=== PATIENT | male | born 1985 | race Caucasian/White ===

== ENCOUNTER 2017-11-12 10:15 | Emergency (ER) | payer OTHER ==
--- NOTE | 2017-11-12 11:19 | ED PDOC ---
HPI: Psych/Substance Abuse Time Seen by Provider: 11/12/17 11:17 Chief Complaint (Nursing): Psychiatric Evaluation Chief Complaint (Provider): PSYCH EVAL History Per: Patient (31 Y/O MALE H/O PTSD BROUGHT TO ED BY POLICE FOR EVALUATION OF AGITATION NOTED AT HOME. PATIENT STATES HE 'VENTS' AFTER WORK DUE TO HIS PTSD/ ALSO TALKS TO FRIENDS AND SMOKES [place] TO HELP WITH SYMPTOMS. DENIES ANY SI/HI. NO MEDICATIONS OTHERWISE.) Past Medical History Reviewed: Historical Data, Nursing Documentation, Vital Signs Vital Signs: Last Vital Signs Temp 97.9 F 11/12/17 10:18 Pulse 109 H 11/12/17 10:18 Resp 21 11/12/17 10:18 BP 129/78 11/12/17 10:18 Pulse Ox 100 11/12/17 10:18 - Medical History PMH: Bipolar Disorder, Schizophrenia Denies: Chronic Kidney Disease - Family History Family History: States: No Known Family Hx - Home Medications Home Medications: Ambulatory Orders Medication Instructions Recorded No Known Home Med 11/12/17 - Allergies Allergies/Adverse Reactions: Allergies Allergy/AdvReac Type Severity Reaction Status Date / Time No Known Allergies Allergy Verified 11/12/17 11:12 - Laboratory Results Result Diagrams: 11/12/17 11:27 11/12/17 11:27 - ECG O2 Sat by Pulse Oximetry: 100 - Progress ED Course And Treament: XANAX 0.5 MG X 1 DOSE SEEN BY CRISIS WILL BE [facility] [place] [place] EVALUATION 1:1 ORDERED CXR:NAD EKG: NSR 70BPM WITH OCCASIONAL PVC PATIENT MEDICALLY CLEARED FOR PSYCHIATRIC EVALUATION Disposition - Clinical Impression Clinical Impression: PTSD (post-traumatic stress disorder) - Patient ED Disposition Is Patient to be Admitted: Transfer of Care - Disposition Disposition: Transfer of Care Disposition Time: 20:00 Condition: STABLE Patient Signed Over To: Coby Stoo Handoff Comments: PENDING [facility] EVAL
[2017-11-12 11:36] LABS: BASO % 0.5 % (0.0-2.0); EOS # 0.1 K/uL (0.0-0.7); EOS % 0.8 % (0.0-4.0); HEMOGLOBIN 13.6 g/dL (12.0-18.0); LYMPH # 2.1 K/uL (1.0-4.3); MEAN CELL VOLUME 89.1 fl (80.0-94.0); MEAN CORPUSCULAR HEMOGLOBIN 30.7 pg (27.0-31.0); MEAN CORPUSCULAR HGB CONC 34.5 g/dL (33.0-37.0); MEAN PLATELET VOLUME 8.1 fl (7.2-11.7); MONO # 0.6 K/uL (0.0-0.8); MONO % 8.1 % (0.0-10.0); NEUT # 4.1 K/uL (1.8-7.0); NEUT % 59.6 % (50.0-75.0); NRBC % 0.1 % (0.0-0.0); RBC 4.43 Mil/uL (4.40-5.90); RED CELL DISTRIBUTION WIDTH 12.8 % (11.5-14.5); WHITE BLOOD COUNT 6.9 K/uL (4.8-10.8)
[2017-11-12 11:38] LABS: URINE BACTERIA RARE (<OCC); URINE BILIRUBIN NEGATIVE (NEGATIVE); URINE BLOOD NEGATIVE (NEGATIVE); URINE CLARITY CLOUDY (Clear); URINE COLOR AMBER (YELLOW); URINE GLUCOSE (UA) NEG (Normal); URINE LEUKOCYTE ESTERASE NEG Leu/uL (Negative); URINE PROTEIN 30 mg/dL (NEGATIVE)
[2017-11-12 11:44] LABS: BLOOD UREA NITROGEN 14 mg/dl (9-20); GFR AFRICAN-AMERICAN > 60; GFR NON-AFRICAN AMERICAN > 60
[2017-11-12 11:58] LABS: BARBITURATES, UR NEGATIVE (NEGATIVE); BENZODIAZEPINES, UR NEGATIVE (NEGATIVE); OPIATES, UR NEGATIVE (NEGATIVE); PHENCYCLIDINE, UR NEGATIVE (NEGATIVE)
[2017-11-12 14:19] LABS: ACETAMINOPHEN < 10.0 ug/ml (10.0-30.0); SALICYLATE < 1.0 mg/dl
--- NOTE | 2017-11-12 14:41 | RAD ---
PROCEDURE: CHEST RADIOGRAPH, 1 VIEW HISTORY: ROUTINE COMPARISON: None available. FINDINGS: LUNGS: Clear. PLEURA: No pneumothorax or pleural fluid seen. CARDIOVASCULAR: Normal. OSSEOUS STRUCTURES: No significant abnormalities. VISUALIZED UPPER ABDOMEN: Normal. OTHER FINDINGS: None. IMPRESSION: No active disease.
--- NOTE | 2017-11-12 20:48 | ED PDOC ---
- Laboratory Results Result Diagrams: 11/12/17 11:27 11/12/17 11:27 - ECG O2 Sat by Pulse Oximetry: 100 Pulse Ox Interpretation: Normal <Coby Soto - Last Filed: 11/13/17 03:59> - Laboratory Results Result Diagrams: 11/12/17 11:27 11/12/17 11:27 <Haley Ward A - Last Filed: 11/15/17 11:45> Medical Decision Making <Coby Soto - Last Filed: 11/13/17 03:59> <Haley Ward A - Last Filed: 11/15/17 11:45> Medical Decision Making: Case was signed out to staff writer from [facility] pending [facility] evaluation. 8:45 pm: Patient starting to become increasingly agitated, 2 mg IM Ativan ordered 1:30 pm - [place] crisis counselor evaluated patient and patient is accepted at [facility]. Beds are currently not available. Patient will be monitored in the ED pending available bed at [place]. ( ElviscarissaCoby) Disposition - POA Present On Arrival: None - Disposition Disposition: Transfer of Care Disposition Time: 06:00 Patient Signed Over To: Haley Ward Handoff Comments: pending bed assignment at [facility] <Coby Soto - Last Filed: 11/13/17 03:59> Counseled Patient/Family Regarding: Studies Performed, Diagnosis - POA Present On Arrival: None - Disposition Disposition: Transfer of Care Patient Signed Over To: Mary Ellen Diaz <Haley Ward - Last Filed: 11/15/17 11:45> - Clinical Impression Clinical Impression: PTSD (post-traumatic stress disorder) - Disposition Condition: STABLE
--- NOTE | 2017-11-13 11:40 | CARD ---
APPROVED REPORT EKG Measurement Heart [id number] <Conclusion> Sinus rhythm with occasional premature ventricular complexes and fusion complexes Rightward axis Early repolarization Borderline ECG
--- NOTE | 2017-11-13 11:54 | CP.PCM.CON ---
History of Present Illness - History of Present Illness History of Present Illness: This is a 31 yr old male with h/o PTSD and face to face requested as pt presented with psychotic depression and suicidal ideation and screened by [facility] and waiting for admission Past Patient History - Past Social History Smoking Status: tobaccco - CARDIAC Hx Cardiac Disorders: No Hx Hypertension: No - PULMONARY Hx Tuberculosis: No - NEUROLOGICAL HX Cerebrovascular Accident: No Hx Seizures: No - HEENT Hx HEENT Problems: No - RENAL Hx Chronic Kidney Disease: No - ENDOCRINE/METABOLIC Hx Endocrine Disorders: No - HEMATOLOGICAL/ONCOLOGICAL Hx Cancer: No Hx Human Immunodeficiency Virus (HIV): No - INTEGUMENTARY Hx Dermatological Problems: No - MUSCULOSKELETAL/RHEUMATOLOGICAL Hx Musculoskeletal Disorders: No - GASTROINTESTINAL Hx Gastrointestinal Disorders: No - GENITOURINARY/GYNECOLOGICAL Hx Sexually Transmitted Disorders: No - PSYCHIATRIC Hx Bipolar Disorder: Yes Hx Schizophrenia: Yes - SURGICAL HISTORY Hx Surgeries: No - ANESTHESIA Hx Anesthesia: No Hx Anesthesia Reactions: No Meds Allergies/Adverse Reactions: Allergies Allergy/AdvReac Type Severity Reaction Status Date / Time No Known Allergies Allergy Verified 11/12/17 11:12 Results - Vital Signs Recent Vital Signs: Last Vital Signs Temp 97 F L 11/13/17 08:32 Pulse 87 11/13/17 08:32 Resp 20 11/13/17 08:32 BP 127/69 11/13/17 08:32 Pulse Ox 98 11/13/17 08:32 - Labs Result Diagrams: 11/12/17 11:27 11/12/17 11:27 Labs: Laboratory Results - last 24 hr 11/12/17 11/12/17 11:24 14:02 Salicylates < 1.0 Urine Opiates Screen Negative Urine Methadone Screen Negative Acetaminophen < 10.0 L Ur Barbiturates Screen Negative Ur Phencyclidine Scrn Negative Ur Amphetamines Screen Negative U Benzodiazepines Scrn Negative U Oth Cocaine Metabols Negative U Cannabinoids Screen Positive H
--- NOTE | 2017-11-13 22:36 | ED PDOC ---
- Laboratory Results Result Diagrams: 11/12/17 11:27 11/12/17 11:27 - ECG O2 Sat by Pulse Oximetry: 98 - Progress ED Course And Treament: 3p Rec'd endorsement from Dr Diaz. Pt to be hospitalized for PTSD. Pending bed availability. Medically cleared on previous shift. Pt continues to be medically stable for psych admission 1700 Pt anxious about staying in room for so long. Antianxiety medication given. 10p Transport in ER to transfer pt to [facility]. Stable for transfer. Disposition - Clinical Impression Clinical Impression: PTSD (post-traumatic stress disorder) - POA Present On Arrival: None - Disposition Disposition: Other Institution Disposition Time: 15:00 Condition: STABLE
[2017-11-13 23:02] VITALS: BP 147/86; PULSE 86; RESP 18; TEMP 98.1
[2017-11-15 15:52] VITALS: O2SAT 100
== END 2017-11-13 22:00 | disposition short-term general hospital (02) ==
LOC: H.ER 10:15
DX: F43.10 Post-traumatic stress disorder, unspecified (principal); Z00.8 Encounter for other general examination; Z86.59 Personal history of other mental and behavioral disorders; F12.90 Cannabis use, unspecified, uncomplicated
CPT/HCPCS: 71045; 80048; 80320; 80324; 80329; 80345; 80346; 80349; 80353; 80358; 80361; 81003; 83992; 85025; 93005; 96372; 99285; J2060

== ENCOUNTER 2018-01-21 04:02 | Emergency (ER) | payer SELFPAY ==
[2018-01-21 04:07] VITALS: O2SAT 98
--- NOTE | 2018-01-21 04:41 | ED PDOC ---
HPI: General Adult Time Seen by Provider: 01/21/18 04:10 Chief Complaint (Nursing): Medical Clearance History Per: Patient History/Exam Limitations: no limitations Onset/Duration Of Symptoms: Days Have you had recent travel within the past 21 days to any of the following countries: [place], [place], [place] or [place]?: No Current Symptoms Are (Timing): Gone Now Additional Complaint(s): Hx of bipolar disorder, schizophrenia brought to ER for medical and psych clearance. Patient has no complaints, denies suicidal or homicidal thoughts, denies any medical complaint. States he's compliant with his medications. Past Medical History Reviewed: Historical Data, Nursing Documentation, Vital Signs Vital Signs: Last Vital Signs Temp 98.3 F 01/21/18 04:04 Pulse 89 01/21/18 04:04 Resp 16 01/21/18 04:04 BP 134/71 01/21/18 04:04 Pulse Ox 98 01/21/18 04:04 - Medical History PMH: Bipolar Disorder, Schizophrenia Denies: Diabetes, Hepatitis, HIV, HTN, Chronic Kidney Disease, Seizures, Sexually Transmitted Disease - Family History Family History: States: Unknown Family Hx - Home Medications Home Medications: Ambulatory Orders Medication Instructions Recorded No Known Home Med 11/12/17 - Allergies Allergies/Adverse Reactions: Allergies Allergy/AdvReac Type Severity Reaction Status Date / Time No Known Allergies Allergy Verified 11/12/17 11:12 Review of Systems ROS Statement: Except As Marked, All Systems Reviewed And Found Negative Physical Exam - Reviewed Nursing Documentation Reviewed: Yes Vital Signs Reviewed: Yes - Physical Exam Appears: Positive for: Well, Non-toxic, No Acute Distress Head Exam: Positive for: ATRAUMATIC, NORMAL INSPECTION, NORMOCEPHALIC Skin: Positive for: Normal Color, Warm, DRY Eye Exam: Positive for: EOMI, Normal appearance, PERRL ENT: Positive for: Normal ENT Inspection Neck: Positive for: Normal, Painless ROM Cardiovascular/Chest: Positive for: Regular Rate, Rhythm Respiratory: Positive for: CNT, Normal Breath Sounds Gastrointestinal/Abdominal: Positive for: Normal Exam, Soft. Negative for: Tenderness Back: Positive for: Normal Inspection Extremity: Positive for: Normal ROM Neurologic/Psych: Positive for: Alert, manager hardware II-XII, Oriented (x 3), Mood/Affect ( normal), Gait (normal). Negative for: Motor/Sensory Deficits, Aphasia - ECG O2 Sat by Pulse Oximetry: 98 Pulse Ox Interpretation: Normal Medical Decision Making Medical Decision Making: Patient is well appearing, normal acting, oriented, alert. Medically and psychiatrically cleared. Disposition - Clinical Impression Clinical Impression: Normal exam - Disposition Referrals: [facility] [Outside] Disposition: Discharged/Transfer to Law Enforcement Disposition Time: 04:30 Condition: STABLE Additional Instructions: Patient is medically and psychiatrically cleared for incarceration. Instructions: General (DC) Forms: [employer] (Serbian)
[2018-01-21 05:57] VITALS: BP 122/66; PULSE 92; RESP 18; TEMP 98
== END 2018-01-21 04:10 ==
LOC: H.ER 04:02
DX: F20.9 Schizophrenia, unspecified; F31.9 Bipolar disorder, unspecified